=== PATIENT | female | born 1995 | race Caucasian/White ===

== ENCOUNTER 2018-07-16 22:39 | Emergency (ER) | payer OTHER ==
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
[2018-07-16 23:04] VITALS: BP 108/73; PULSE 86; TEMP 98.5; BMI 19.5
== END 2018-07-17 00:25 | disposition home or self-care (01) ==
LOC: FER 22:39
DX: S16.1XXA Strain of muscle, fascia and tendon at neck level, initial encounter (principal); V43.62XA Car passenger injured in collision with other type car in traffic accident, initial encounter; Y93.89 Activity, other specified; Y92.410 Unspecified street and highway as the place of occurrence of the external cause
CPT/HCPCS: 72050-TC-FY; 84703; 99281-25